=== PATIENT | female | born 1985 | race Asian ===

== ENCOUNTER 2016-07-23 10:22 | Emergency (ER) | payer OTHER ==
[~2016-07-23] VITALS: Ht 160 cm; Wt 93.0 kg
[2016-07-23 10:26] VITALS: BP 116/74
[2016-07-23] MEDS ORDERED: HYDROcodone/APAP 7.5-325MG/15ML UDC PO ONE (11:00)
[2016-07-23] MEDS ORDERED: DEXAMETHASONE 4 MG TABLET PO ONE (11:00)
[2016-07-23] MEDS ORDERED: HYDROcodone/APAP 7.5-325MG/15ML UDC ONE (11:28)
[2016-07-23] MEDS ORDERED: DEXAMETHASONE 4 MG TABLET ONE (11:28)
== END 2016-07-23 11:43 | disposition home or self-care (01) ==
LOC: ED 11:38
DX: J02.9 Acute pharyngitis, unspecified (principal)
CPT/HCPCS: 99283

== ENCOUNTER 2017-10-25 20:47 | Emergency (ER) | payer OTHER ==
[~2017-10-25] VITALS: Ht 162.6 cm; Wt 106.2 kg
[2017-10-25 21:00] VITALS: BP 170/99
[2017-10-25] MEDS ORDERED: DEXAMETHASONE 4 MG TABLET ONE (21:29)
[2017-10-25] MEDS ORDERED: KETOROLAC 30 MG/1 ML IM ONE (21:30)
[2017-10-25] MEDS ORDERED: KETOROLAC 30 MG/1 ML ONE (21:30)
[2017-10-25] MEDS ORDERED: DEXAMETHASONE 4 MG TABLET PO ONE (21:30)
== END 2017-10-25 22:25 | disposition home or self-care (01) ==
LOC: ED 21:57
DX: H66.92 Otitis media, unspecified, left ear (principal)
CPT/HCPCS: 96372; 99283; J1885

== ENCOUNTER 2018-02-15 09:42 | Emergency (ER) | payer OTHER ==
[~2018-02-15] VITALS: Ht 162.6 cm; Wt 107.3 kg
[2018-02-15 09:50] VITALS: BP 136/91
[2018-02-15] MEDS ORDERED: DEXAMETHASONE 4 MG/ML, 1ML ONE (10:30)
[2018-02-15] MEDS ORDERED: DEXAMETHASONE 4 MG/ML, 1ML PO ONE (10:30)
== END 2018-02-15 11:03 | disposition home or self-care (01) ==
LOC: ED 10:20
DX: J02.0 Streptococcal pharyngitis (principal); B95.5 Unspecified streptococcus as the cause of diseases classified elsewhere; K12.2 Cellulitis and abscess of mouth
CPT/HCPCS: 87081; 87147; 87880; 99284; J1100

== ENCOUNTER 2018-04-10 19:25 | Emergency (ER) | payer OTHER ==
[~2018-04-10] VITALS: Ht 160 cm; Wt 110.0 kg
[2018-04-10 19:46] VITALS: BP 156/63
== END 2018-04-10 20:46 | disposition home or self-care (01) ==
LOC: ED 20:26
DX: H66.91 Otitis media, unspecified, right ear (principal); K08.89 Other specified disorders of teeth and supporting structures
CPT/HCPCS: 99283

== ENCOUNTER 2020-12-12 13:43 | Emergency (ER) | payer OTHER ==
[~2020-12-12] VITALS: Ht 162.6 cm; Wt 118.1 kg
[2020-12-12 13:46] VITALS: BP 137/79
--- NOTE | 2020-12-12 17:56 | NUR ---
na x 1
--- NOTE | 2020-12-12 18:55 | NUR ---
not in lobby
--- NOTE | 2020-12-12 19:11 | NUR ---
not in lobby
== END 2020-12-12 19:13 | disposition left against medical advice (07) ==
LOC: ED 14:00
DX: J06.9 Acute upper respiratory infection, unspecified (principal); Z20.822 Contact with and (suspected) exposure to COVID-19
CPT/HCPCS: 71045; 99284; U0003; U0005